=== PATIENT | female | born 1970 | race Caucasian/White ===

== ENCOUNTER 2021-08-30 07:44 | Day surgery (SDC) | payer BC, OTHER ==
[2021-08-25 09:08] LABS: Urine Appearance CLEAR (Clear); Urine Bilirubin NEGATIVE (Negative); Urine Blood 1+ (Negative); Urine Color YELLOW (Yellow); Urine Glucose NEGATIVE (Negative); Urine Microscopic Reflex ORDER UMIC; Urine Protein NEGATIVE (Negative); Urine Specific Gravity 1.025 (1.005-1.030); Urine Urobilinogen 0.2 mg/dL (0.2-1.0)
[2021-08-25 09:10] LABS: Urine Bacteria <20 /HPF (<20); Urine RBC <5 /HPF (NONE SEEN)
[2021-08-29 08:24] LABS: Absolute Lymphocytes (CBC) 1.9 K/uL (0.7-4.9); Hematocrit 40.4 % (36.0-45.0); Lymphocytes % 35.3 % (15.3-44.8); MPV 8.3 fL (7.6-11.3); RBC Red Blood Cell Count 4.22 M/uL (3.86-4.86)
[2021-08-29 08:30] LABS: Protime INR 1.12
[2021-08-30] MEDS ORDERED: Ringers Lactate 1,000 ML IV ONE ×3 (07:53→14:38)
[2021-08-30] MEDS ORDERED: CEFAZOLIN/SWI 2gm 2 GM/20 ML SYR ONE (07:53)
[2021-08-30] MEDS ORDERED: VASOPRESSIN 20 UNIT/ML VIAL ONE ×2 (11:32→11:40)
[2021-08-30] MEDS ORDERED: CEFAZOLIN SODIUM 1 GM/VIAL ONE (11:32)
[2021-08-30] MEDS ORDERED: NA CHLORIDE 0.9% 100 ML IV ONE (11:32)
[2021-08-30] MEDS ORDERED: LIDOCAINE 1% W/EPI 1:100,000 10 ML VIAL ONE (11:32)
[2021-08-30] MEDS ORDERED: NA CHLORIDE 0.9% 1,000 ML ONE (11:39)
[2021-08-30] MEDS ORDERED: ROCURONIUM 50 MG/5 ML VIAL IV ONE ×2 (12:04→13:22)
[2021-08-30] MEDS ORDERED: propofoL 200 MG/20 ML VIAL IV ONE (12:04)
[2021-08-30] MEDS ORDERED: KETAMINE HCL 500 MG/5 ML VIAL ONE (12:04)
[2021-08-30] MEDS ORDERED: NS 0.9% VIAL 10 ML ONE (12:05)
[2021-08-30] MEDS ORDERED: LIDOCAINE 2% MPF 5 ML VIAL ONE (12:05)
[2021-08-30] MEDS ORDERED: dexAMETHasone 10 MG/ML VIAL ONE (12:05)
[2021-08-30] MEDS ORDERED: FENTANYL CITR 250 MCG/5 ML ONE (12:05)
[2021-08-30] MEDS ORDERED: ONDANSETRON 4 MG/2 ML VIAL ONE (12:05)
[2021-08-30] MEDS ORDERED: MIDAZOLAM HCL 2 MG/2 ML INJ ONE (12:05)
[2021-08-30] MEDS ORDERED: PROMETHAZINE INJ 25 MG/ML AMP IV PRN (12:22)
[2021-08-30] MEDS ORDERED: EPHEDRINE SULF 50 MG/ML VIAL ONE (12:39)
[2021-08-30] MEDS ORDERED: KETOROLAC 30 MG/ML INJ ONE (14:52)
[2021-08-30] MEDS: MORPHINE 4 MG/ML SYR ONE ×2 (15:31→15:37)
[2021-08-30] MEDS: HYDROMORPHONE HCL 1 MG/ML INJ ONE ×2 (15:46→15:53)
[2021-08-30] MEDS ORDERED: IBUPROFEN 600 MG TAB PO PRN (15:54)
[2021-08-30] MEDS ORDERED: Ringers Lactate 1,000 ML IV SCH (16:00)
[2021-08-30 16:13] VITALS: O2SAT 96
[2021-08-30 16:46] VITALS: BMI 31.7
[2021-08-30] MEDS: HYDROCODONE/APAP 5/325 MG TAB PO PRN (17:23)
--- NOTE | 2021-08-31 03:52 | OP ---
Date of Procedure: 08/30/2021 Surgeon: Cynthia Bueno MD Preoperative Diagnoses: Stage II posterior wall defect, perineocele and vaginal wall prolapse. Postoperative Diagnoses: Stage II posterior wall defect, perineocele, vaginal wall prolapse, and pos terior enterocele. Procedures Performed: Posterior wall repair, posterior enterocele repair, perineocele repair, perine orrhaphy, right sacrospinous ligament fixation, colpopexy, cystoscopy. Anesthesia: General endotracheal. Ebl: 100. Complications: No complications. Drains: Valadez catheter and vaginal packing. Specimen: No specimens. Condition: Stable. Findings: POP-Q -2, -2, -4. The perineal body 5 cm thin, 7 cm, and 0. The perineum had a significant defect and perineal body was absent in the midline, at the l evel of the posterior fourchette and all the way to the sphincter. The sphincter was still intact an d through the perineum, there was a significant defect. She also had a posterior enterocele, which h ad to be repaired as well in the right apical aspect. Indications: The patient is a 50-year-old female, 2, para 2, status post hysterectomy, ovari es still retained complaining of vaginal bulge increased with straining, defecatory dysfunction as we ll and significant levator tone decrease. Had some PORFIRIO and OAB symptoms, however, her predominant sy mptom is vaginal bulge with straining and bowel movements. After full evaluation of the prolapse and incontinence, we had a full discussion about all the proced ures that could be beneficial to her. The patient wanted to proceed with the posterior wall apical r epair as needed and the perineocele repair as this was most bothersome leading symptom. Denied any d yspareunia in the past. Description Of Procedure: After informed consent was verified, she was taken back to OR and placed i n supine fashion on the operating table. 2 g of Ancef were given. SCDs were placed. General anesth esia was given with LMA. Then, she was placed in a dorsal lithotomy position. Abdomen, vulva, vagin a, and perineum were prepped and draped in a sterile fashion. Valadez was placed to drain the bladder and retracted superiorly after clamping it. The remnants of the hymen were identified and Allis clam ps were placed here and injecting the posterior wall with dilute vasopressin. Perineum was injected as well. A nagi-shaped incision was placed in the lower half of the posterior wall on the vaginal epithelium using a needle tip cautery. Then epithelial layer was removed by dissecting close to the epidermis and leaving as much connective tissue as possible. This was dissected and opened up. The n the vaginal epithelium was picked up with Allis clamps on the right side and dissection was carried to the pararectal space all the way to the pararectal attachment of the connective tissue. Then opp osite sulcus was also dissected. There was detachment from the right distal sulcus laterally of the connective tissue and then detachment from the perineal body as well. Then as the next step, the sup erior dissection was performed to expose the posterior enterocele all the way to the level of the vag inal wall. Dissection was carried down towards the perineal body. Then, a triangular skin incision was made on the perineum, an inverted triangle, after injecting dilute vasopressin, then epithelial layer was bernice en down. This dissection was carried and connected over the perineal area to the upper dissection. Then, the distal remnant of the bulbocavernosus and deep transverse perineum were all exposed. Mostl y replaced by scar in this area, there was weakness. Rectovaginal exam was performed to identify the ends. I then made sure that there was no levator plication and just reconstructed the perineal body from si de-to-side using 2-0 Vicryl sutures. Then, 2-0 PDS was used to repair and reattach the distal connec tive tissue of the rectovaginal septum to the right lateral sulcus and to the perineal body. Then th e sacrospinous sutures were taken on the mid ligament and then attached to the apex at the remnant of the uterosacral on the right side. Then the proximal rectovaginal septum was reattached to the apex along with a stitch. Prolene sutures were used making sure that they did not get exposed into the v aginal epithelium. Once these sutures were placed and attached appropriately, then the vaginal epith elium in the bottom was slightly trimmed, maybe less than 0.5 cm to take out the dog-ear and even out the epithelial dissection edges. Once this was done, vaginal diameter was measured to be at least s paced out 3 fingerbreadths easily at the introitus. Then the sacrospinous sutures were tied down rig ht on the ligament and the vaginal epithelium was closed with the help of 2-0 Vicryl in a continuous running fashion. Then 3-0 Vicryl was used to close the perineum as well as the perineal body in the subcutaneous and subcuticular planes. Rectal exam was performed. There was excellent reconstruction of the perineal body. There were no sutures in the rectum and the entire posterior wall was well re paired. The apex was nicely pulled up. Valadez was removed. Cystoscopy was performed with 30-degree lens. Normal ureteric jets from both anabel fices. Trigone normal. Dome of the bladder and lateral espinoza were all examined and were unremarkabl e. Scope was removed and Valadez was replaced. Vaginal packing was placed. The patient was recovered from anesthesia. EBL 100. Urine output another 200. The patient will be overnight in the hospital and discharged home tomorrow after a voiding trial and removing the vaginal packing. Follow up in 1 week. ISRAEL/REMBERTO Voice ID: [id number] Report ID: [id number]
[2021-08-31] MEDS ORDERED: NEBIVOLOL HCL 5 MG TAB PO SCH (09:00)
[2021-08-31] MEDS ORDERED: VALSARTAN 160 MG TAB PO SCH (09:00)
[2021-08-31] MEDS ORDERED: AMLODIPINE 5 MG TAB PO SCH (09:00)
[2021-08-31 09:07] VITALS: BP 120/68; TEMP 99
[2021-08-31] MEDS: HYDROCODONE/APAP 5/325 MG TAB PO PRN (09:08)
[2021-09-02] MEDS ORDERED: ESTRADIOL TOP SCH (17:00)
== END 2021-08-31 11:30 | disposition home or self-care (01) ==
LOC: OR 07:44 → 2ND-WC 15:26 → OR 08-31 11:30
PROVIDERS: ATTEND Obstetrics & Gynecology
PROC: 0JQC0ZZ Repair Pelvic Region Subcutaneous Tissue and Fascia, Open Approach (ICD-10-PCS; 2021-08-30)
PROC: 0HQ9XZZ Repair Perineum Skin, External Approach (ICD-10-PCS; 2021-08-30)
PROC: 0USG7ZZ Reposition Vagina, Via Natural or Artificial Opening (ICD-10-PCS; principal; 2021-08-30 08:45)
DX: N81.6 Rectocele (principal); N81.84 Pelvic muscle wasting; N81.81 Perineocele; N39.3 Stress incontinence (female) (male); K59.00 Constipation, unspecified; N32.81 Overactive bladder; I10 Essential (primary) hypertension; Z20.822 Contact with and (suspected) exposure to COVID-19
CPT/HCPCS: 85025; 36415; 86900; 86850; 85610; 86901; 85730; 57282; 57250; U0002; J2704; J2550; J2250; J3010; J1100; J1170; J0690 ×2; J7120 ×4; J7030; J2405; 81003; 81015

== ENCOUNTER 2024-09-04 08:29 | Day surgery (SDC) | payer BC ==
[2024-09-01 13:36] LABS: Absolute Basophils 0.1 K/uL (0-0.5); Absolute Eosinophils 0.1 K/uL (0-0.5); Absolute Lymphocytes (CBC) 2.5 K/uL (0.7-4.9); Absolute Monocytes 0.6 K/uL (0.1-1.3); Absolute Neutrophil 3.8 K/uL (1.8-8.0); Basophils % 0.9 % (0-1.3); Eosinophils % 1.6 % (0-4.4); Hematocrit 40.9 % (36.0-45.0); Hemoglobin 13.7 g/dL (12.0-15.0); Lymphocytes % 35.4 % (15.3-44.8); MCH 32.1 pg (27.0-35.0); MCHC 33.6 g/dL (32.0-36.0); MCV 95.6 fL (80-100); MPV 8.2 fL (7.6-11.3); Monocytes % 8.3 % (3.3-12.3); Neutrophils % 53.8 % (41.7-73.7); Nucleated Red Blood Cells % 0.1 % (0-0); Platelets 292 thou/uL (152-406); RBC Red Blood Cell Count 4.28 M/uL (3.86-4.86); Red Cell Distribution Width 13.3 % (12.1-15.2)
[2024-09-01 13:43] LABS: PT Prothrombin Time 12.8 SECONDS (10-13.0); Protime INR 1.13
[2024-09-01 13:45] LABS: Specific Gravity < 1.005 (1.005-1.030); Sqamous Epithelial <5 /HPF (None Seen); Urine Bacteria <20 /HPF (<20); Urine Bilirubin NEGATIVE (Negative); Urine Blood Trace (Negative); Urine Clarity Turbid (Clear); Urine Color Colorless (Yellow); Urine Culture Reflex Order REFLEXED; Urine Glucose NEGATIVE (Negative); Urine Ketones NEGATIVE (Negative); Urine Microscopic Reflex YN ORDER UMIC; Urine Nitrite NEGATIVE (Negative); Urine Protein NEGATIVE (Negative); Urine RBC <5 /HPF (None Seen); Urine Urobilinogen Normal (Normal); Urine WBC None Seen /HPF (<5)
[2024-09-01 13:50] LABS: Anion Gap 9.6 mEq/L (5.0-15.0); Potassium 3.6 mEq/L (3.5-5.1)
[2024-09-04] MEDS ORDERED: Ringers Lactate 1,000 ML IV ONE (08:46)
[2024-09-04] MEDS ORDERED: GLYCOPYRROLATE 0.2 MG/ML SYR ONE (09:35)
[2024-09-04] MEDS ORDERED: LIDOCAINE 2% MPF 5 ML VIAL ONE (09:35)
[2024-09-04] MEDS ORDERED: MIDAZOLAM HCL 2 MG/2 ML INJ ONE (09:35)
[2024-09-04] MEDS ORDERED: FENTANYL CITR 100 MCG/2 ML ONE (09:35)
[2024-09-04] MEDS ORDERED: propofoL 200 MG/20 ML VIAL IV ONE (09:35)
[2024-09-04] MEDS ORDERED: ROCURONIUM 50 MG/5 ML VIAL IV ONE (09:35)
[2024-09-04] MEDS ORDERED: ONDANSETRON 4 MG/2 ML VIAL ONE (09:35)
[2024-09-04] MEDS ORDERED: NEOSTIGMINE 1 MG/ML -10 ML VIAL ONE (09:35)
[2024-09-04] MEDS ORDERED: NA CHLORIDE 0.9% 100 ML ONE (09:35)
[2024-09-04] MEDS: CEFAZOLIN SODIUM 1 GM/VIAL ONE (09:51)
[2024-09-04] MEDS ORDERED: CEFAZOLIN SODIUM 2 GM/VIAL ONE (10:09)
[2024-09-04] MEDS ORDERED: EPHEDRINE SULF 50 MG/ML VIAL ONE (10:38)
[2024-09-04] MEDS: VASOPRESSIN 20 UNIT/ML VIAL ONE (10:51)
[2024-09-04] MEDS ORDERED: KETOROLAC 30 MG/ML INJ ONE (11:22)
--- NOTE | 2024-09-04 11:54 | EKG ---
Test Date: 2024-09-01 Test Time: 13:21:38 Software Engineer Mobile: AGUSTINA MEASUREMENT RESULTS: Intervals: Rate: 72 [place]: 140 QRSD: 88 QT: 434 QTc: 475 [place]: P: 56 [place]: 140 QRS: 46 T: 59 INTERPRETIVE STATEMENTS: Normal sinus rhythm Low voltage QRS Nonspecific T wave abnormality Prolonged QT Abnormal ECG Compared to ECG 04/29/2013 07:56:45 Low QRS voltage now present T-wave abnormality now present Prolonged QT interval now present Electronically Signed On 09-04-24 11:46:17 CDT by John Riojas
[2024-09-04 15:28] VITALS: BP 120/68; TEMP 97; O2SAT 99
--- NOTE | 2024-09-04 22:24 | OP ---
Date of Procedure: 09/04/2024 Surgeon: Cynthia Bueno MD Mechanic Welder: No assistants. Preoperative Diagnosis: Stress urinary incontinence. Postoperative Diagnosis: Stress urinary incontinence. Procedures Performed: Transobturator mid urethral single incision sling (Solyx), cystoscopy. Anesthesia: General endotracheal. Specimens: No specimens. Complications: No complications. Condition: Stable. Drains: Valadez catheter and vaginal packing. Findings: Mid urethral sling was placed in close apposition with the urethra in the midline and the tape was well centered. Both anchors were well positioned and on cystoscopy, no evidence of any trau ma or foreign body in the bladder including mesh. Both ureteric orifices were well visualized and yao d good jets of urine and the rest of the bladder was completely unremarkable. TVT-O that was availab le on the shelf and there were no available TVT-O kits and therefore the Solyx sling was used . Indications: The patient is a 53-year-old with stress urinary incontinence. She is status post post erior repairs and colpopexy, has done very well with this. No significant anterior wall prolapse and completely asymptomatic from this. So, we evaluated her incontinence. It was significantly related to urethral hypermobility. Then, her pelvic floor repair was done in 2021. Has positive cough stre ss test in the office, although the mid urethral closure pressure was 104 cm. Because the patient yao s symptoms that are consistent with a positive cough stress test at the bedside, proceeded to consent her for a sling. Bleeding, infection, injury to the urethra and bladder, dyspareunia, mesh exposure , or sling revision were all reviewed with the patient and she was consented. Description Of Procedure: She was taken back to OR, 2 g of Ancef were given. She was placed in supi ne fashion on the operating table. General anesthesia was given. Then, she was placed in a dorsal l ithotomy position using Vince stirrups. Lower abdomen, vulva, vagina, and perineum and medial thighs were prepped and draped in a sterile fashion. Valadez was placed to drain the bladder and clamped aft erwards and retracted superiorly. The mid urethral area was picked up with 2 Allis clamps and inject ed with dilute vasopressin 10 mL injected on both sides. Then, I was able to use a 15 blade to make an incision through the skin, subcutaneous tissues, connective tissue all the way down to the level u nderneath the connective tissue. Then, dissection was performed with Metzenbaum scissors to the ipsi lateral obturator space hugging the inferior pubic ramus. Once the obturator membrane was slightly p erforated, the track was expanded, so I could easily fit the width of the mesh without folding. Then , in a similar fashion, left side was also dissected and laid out. As the TVT-O was not available, Solyx was a very good fit for the patient and would serve the same pu rpose without any change in risks. The sling was taken dipped in antibiotic solution. Then, midline was marked with 3-0 Vicryl loop sti tch. Then, the cervix was lowered onto the needle and passed through the premade space towards the o bturator membrane. Then, the handle was turned to 45 degree angle and remaining right posterior to t he pubic ramus, obturator fascia was perforated to hook the mesh and once this anchor was placed in a proper position, rechecked by making sure that the midline of the mesh was in the midline where the urethra was positioned. Once this was confirmed, then the anchor was deployed carefully and the need le removed. After giving a gentle tug on the anchor, there was no displacement and good anchorage. Went over to the opposite side, noted the mesh pass through the premade sleeve and once I was at the level of the inferior pubic ramus, then was driven into the obturator internus fascia, underneath the inferior pubic ramus. Once this was done, then I was able to check the mid urethral area. I believ e that it needed slight tightening and so the anchor was driven in slightly 2-3 mm further and then o nce I checked in the midline, there was excellent apposition of the urethra. Once I put the Metzenba um scissors between the urethra and the mesh, the mesh was not too tight and I could easily insert th e Jose Antonio between them. [place] was deployed into the obturator internus and then the needle removed. Central stitch was removed once it was confirmed to be in the midline and the sling was well position ed. Irrigation and suction were performed, antibiotic solution and closure with continuous running 3 -0 Vicryl at skin and subcutaneous tissues. Valadez was removed. Cystoscopy was performed with 30-deg ree lens, normal saline, 17-Sammarinese sheath. Excellent jets of urine from both ureteric orifices. No foreign body or trauma. Bladder was drained after the scope was removed and the catheter was assistant distribution manager d to a drainage bag. Vaginal packing was lightly placed. The patient was recovered from anesthesia. Instrument, needle, and sponge counts were correct at the end of the case. The patient tolerated t he procedure well. She will follow up with me in 7-10 days for 1 week postop. She will have a voidi ng trial before she leaves. Catheter and packing will be removed. If she does not pass the voiding trial, we will re-insert a 16-Sammarinese Valadez and we will retry in 3 days. The patient has been precoun seled, all the paperwork has been given, and appointments made. JAMES Voice ID: [id number] Report ID: [id number]
== END 2024-09-04 13:28 | disposition home or self-care (01) ==
LOC: OR 08:29
PROVIDERS: ATTEND Obstetrics & Gynecology
PROC: 0TSD0ZZ Reposition Urethra, Open Approach (ICD-10-PCS; principal; 2024-09-04 10:00)
DX: N39.3 Stress incontinence (female) (male) (principal)
CPT/HCPCS: 93005 ×2; 87088; 85025; 81001; 87086; 80048; 36415; 86900; 86850; 85610; 86901; 85730; 57288; J2704; J2710; J2003; J2250; J3010; J2405; J7120; J0690